=== PATIENT | female | born 1990 | race Two or more races ===

== ENCOUNTER 2024-12-19 14:16 | Emergency (ER) | payer MEDICAID, SELFPAY ==
[2024-12-19 14:17] VITALS: BMI 17.6
[2024-12-19 14:23] VITALS: BP 95/61; PULSE 80; RESP 18; TEMP 37.1; O2SAT 97
--- NOTE | 2024-12-19 14:38 | XR_ITS ---
Examination: Complete OB ultrasound, less than 14 weeks, transabdominal Date and time of exam: December 19, 2024, 1450 hrs. Indications: Onset vaginal bleeding beginning this morning. Technique: Obstetrical ultrasound images less than 14 weeks performed via transabdominal imaging Findings: Uterus 13.0 cm, irregular intrauterine gestational sac 3.2 cm corresponds to 8 weeks 3 days gestational age Possible molar lumbar No pole, no cardiac activity Right ovary 2.7 cm arterial flow. Left ovary 2.6 cm arterial flow Impression: Embryonic demise, possible molar
--- NOTE | 2024-12-19 14:40 | PD.EDVAGBL ---
ED OB Contraction Preg RMI/HPI General Chief complaint: Vaginal Bleeding Stated complaint: VAGINAL BLEEDING, PREG Time Seen by Provider: 12/19/24 14:19 Arrival date/time: 12/19/24 14:16 This is a 34-year-old female that comes into the emergency room with complaints of vaginal bleeding. Patient states that she found out she was October 26, 2024. Patient went to [place] and did not come back till early this morning. Patient was told in [place] that she did not have a heartbeat and that there was no baby but there was a placenta. Patient denies fever or chills. Patient states she just started having vaginal bleeding. Patient denies nausea, vomiting, diarrhea. Patient denies abdominal pain. Related Data Home Medications ?Medication ?Instructions ?Recorded ?Confirmed vitamin-ferrous fumarate 1 tab PO QDAY 05/25/23 12/27/24 28 mg iron-folic acid 800 mcg tablet ( Vitamins with Minerals) Previous Rx's ?Medication ?Instructions ?Recorded acetaminophen 300 mg-codeine 30 mg 1 tab PO Q8H PRN pain #14 tabs 05/27/23 tablet ibuprofen 800 mg tablet 800 mg PO Q8H PRN pain #30 tabs 05/27/23 Allergies Allergy/AdvReac Type Severity Reaction Status Date / Time No Known Allergies Allergy Verified 12/27/24 09:06 Review of Systems Review of Systems Systems Reviewed: All systems reviewed, normal except as documented Past Medical History Surgical History SURGICAL: Negative Section ED Exam Narrative Physical exam: VITAL SIGNS: Reviewed. GENERAL APPEARANCE: Alert and interactive, follows commands, no acute distress, HEAD AND FACE: Non-traumatic. ENT: PERRL, conjuctiva pink and clear, eyelid no trauma, Mucous membrane moist. NECK: Supple, nontender, no nuchal rigidity. CHEST: No tenderness, no crepitus, no paradoxical movement, no retractions. LUNGS: Clear, well ventilated, symmetric, no rales, no wheezing, no rhonchi, no stridor, good breath sounds bilaterally. HEART: Regular rate, regular rhythm, no murmur, no gallops. ABDOMEN: Soft, nondistended, no guarding, nontender NEUROLOGICAL: Gross motor function intact sensory function intact, Appropriate for age. MUSCULOSKELETAL: low back nontender, full range of motion. EXTREMITIES: No redness no swelling no skin breakdown on bilateral foot and leg. Distal neurovascular status intact bilateral foot SKIN: Color pink, dry, no rash, no lacerations, no abrasions, no contusions. Course Quality Measures none Orders Category Date Time Status US OB <= 14 weeks fetus Stat Exams 12/19/24 14:38 Completed Beta HCG,Quantitative Stat Lab 12/19/24 15:32 Completed CBC Stat Lab 12/19/24 15:32 Completed Comprehensive Metabolic Panel Stat Lab 12/19/24 15:32 Completed Type and Screen Stat Lab 12/19/24 15:32 Completed Urinalysis, C/S if Indicated Stat Lab 12/19/24 16:30 Completed Vital Signs Vital signs: Vital Signs Temperature 98.7 F 12/19/24 14:23 Pulse Rate 80 12/19/24 14:23 Respiratory Rate 18 12/19/24 14:23 Blood Pressure 95/61 12/19/24 14:23 Pulse Oximetry (%) 97 12/19/24 14:23 Oxygen Delivery Method Room Air 12/19/24 14:23 Vaginal Bleeding MDM Narrative MDM Narrative: Labs reviewed CBC unremarkable. BNP unremarkable. Beta hCG is 1346. Urine has some blood and RBCs but otherwise unremarkable. I spoke to patient at length she will [facility] It appears patient is having a miscarriage. Explained importance of follow-up with patient. I explained return if worsening. Patient verbalized understanding. I did speak to about patient. He states it it unlikely a molar but he will see patient in clinic this upcoming week. Ultrasound Shows: Uterus 13.0 cm, irregular intrauterine gestational sac 3.2 cm corresponds to 8 weeks 3 days gestational age Possible molar lumbar No pole, no cardiac activity Right ovary 2.7 cm arterial flow. Left ovary 2.6 cm arterial flow Impression: Embryonic demise, possible molar Christal dictation: Although this document has been carefully reviewed, there may still be some phonetic and other typographical errors. These errors are purely grammatical due to imperfections in the software program and should not be construed in any way to compromise the substance of the patient's medical care during this visit. Patient data External records reviewed:: [facility] previous records Clinical information provided by:: patient Social determinants that could affect healthcare access:: none Patient has the following chronic illnesses:: none How is presenting disease/condition affected by chronic disease/condition?: no chronic disease Evaluation data The following diagnostics were reviewed and interpreted by me:: lab results and radiology exam(s) Lab and/or radiology exams considered but not ordered:: none Interpretation Summary: see note Medications / Prescriptions Medications or Prescriptions considered but not ordered:: none Medication administrations:: none Consultations Consultation(s) initiated? (list below): No Diagnosis Vaginal Bleeding Differential Diagnosis: missed , threatened , dysfunctional uterine bleeding and other (molar ) Most likely diagnosis given after review of the tests above:: molar Admission Indicated Admission indicated?: not indicated Admission Request Was there a request for admission?: No Disposition Plan Disposition Plan: Discharge Discharge Attestation Discharge Attestation: The patient and all family members were given an opportunity to ask questions and understood the discharge instructions. Discharge instructions specifically effects, indications for sooner follow up or return to the emergency department, and the expected course of current diagnosis. Patient condition: Stable Discharge Plan Plan Patient Disposition: HOME (Self Care) Patient condition on transfer: Stable Prescriptions/Referrals Prescriptions/Med Rec: No Action vit-iron fum-folic ac [ Vitamin with Minerals] 28 mg iron- 800 mcg Tablet 1 tab PO QDAY acetaminophen-codeine 300-30 mg tablet 1 tab PO Q8H PRN (Reason: pain) Qty: 14 0RF ibuprofen 800 mg tablet 800 mg PO Q8H PRN (Reason: pain) Qty: 30 0RF Referrals: Bill Carson MD [Physician] - In 1 week Problem List Clinical Impression: Miscarriage at 8 to 28 weeks gestation, Vaginal bleeding Patient/Caregiver Discharge Instructions Discharge Activity: activity as tolerated Education Materials: Understanding Miscarriage ... Additional Instructions: Laly un lori con meneses medico de cabecera en las proximas 24-48 horas. Regrese a la eula de emergencias si hay evidencia de que los signos o sintomas empeoran. Print Language: Lithuanian Stand Alone Forms: [facility] Award Info., Patient Portal Info Letter PA/OB/GYN PHYSICIAN Supervising Physician PA/OB/GYN PHYSICIAN Supervising Physician: jose
[2024-12-19 15:41] LABS: Basophils # (Auto) 0.0 Thou/mm3 (0.0-0.2); Basophils % (Auto) 0 % (0-2.5); Eosinophils # (Auto) 0.1 Thou/mm3 (0.0-0.5); Eosinophils % (Auto) 2 % (0-10); Hematocrit 43.8 % (36.0-46.0); Hemoglobin 14.2 g/dL (12.0-16.0); Immature Granulocytes Auto 0.02 Thou/mm3 (0.00-0.00); Lymphocytes # (Auto) 2.0 Thou/mm3 (1.0-4.8); Lymphocytes % (Auto) 29 % (10-50); Mean Corpuscular HGB Conc 32.4 g/dl (31.0-37.0); Mean Corpuscular Hemoglobin 29.9 pg (25.0-35.0); Mean Corpuscular Volume 92 fL (80-100); Monocytes # (Auto) 0.4 Thou/mm3 (0.0-0.8); Monocytes % (Auto) 5 % (0-12); Neutrophils # (Auto) 4.5 Thou/mm3 (1.8-7.7); Neutrophils % (Auto) 64 % (37-80); Nucleated Red Blood Cell # 0.00 Thou/mm3 (0.00-0.00); Nucleated Red Blood Cell % 0 /100 WBC (0); Platelet Count 246 Thou/mm3 (140-440); RDW Standard Deviation 43.5 fL (36.4-46.3); Red Blood Count 4.75 Miln/mm3 (4.00-5.20); White Blood Count 7.1 Thou/mm3 (3.6-11.0)
[2024-12-19 16:38] LABS: Alanine Aminotransferase 14 U/L (10-49); Albumin, Serum 5.0 gm/dL (3.5-5.0); Albumin/Globulin Ratio 1.8 (1.2-2.2); Alkaline Phosphatase 53 U/L (46-116); Anion Gap 10 (7-16); Aspartate Amino Transferase 16 U/L (0-34); BUN/Creatinine Ratio 11 Ratio (12-20); Beta HCG,Quantitative 1346 mIU/mL (<5.0); Bilirubin,Total 0.5 mg/dL (0.3-1.2); Blood Urea Nitrogen 9 mg/dL (9-23); Calcium 9.5 mg/dL (8.3-10.6); Calcium (Corrected) 9.5 mg/dL (8.5-10.1); Carbon Dioxide 26.3 mMol/L (20.0-31.0); Chloride 106 mMol/L (98-107); Creatinine (Component) 0.8 mg/dL (0.6-1.3); Estimated Creatinine Clearance 72.4 mL/min (>60); Globulin 2.8 gm/dL (2.3-3.5); Glucose 77 mg/dL (74-106); Osmolality,Calculated 280 (275-295); Potassium 4.0 mMol/L (3.4-5.1); Sodium 142 mMol/L (136-145); Total Protein 7.8 gm/dL (5.7-8.2); eGFR > 60 See Note
[2024-12-19 16:59] LABS: Collection Type, Urine Voided
[2024-12-19 17:05] LABS: Bilirubin,Urine Negative (Negative); Blood,Urine 2+ (Negative); Color,Urine Yellow (Lt Yel-Yel); Culture Indicated,Urine Not Indicated; Glucose, Urine Negative (Negative); Ketones,Urine Trace (Negative); Leukocyte Esterase,Urine Negative (Negative); Nitrite,Urine Negative (Negative); PH,Urine 6.0 (5.0-7.0); Protein,Urine Negative (Neg - Trace); RBC,Urine 54 /hpf (0-3); Specific Gravity,Urine 1.029 (1.001-1.035); Squamous Epithelial Cell,Urine < 1 /hpf (0-5); Urobilinogen,Urine 2.0 mg/dL (0.0-1.0); WBC,Urine 1 /hpf (0-5)
[2024-12-19 17:11] LABS: Clarity,Urine Hazy (Clear/Hazy)
== END 2024-12-19 18:23 | disposition home or self-care (01) ==
PROVIDERS: Emergency Provider Nurse Practitioner Family; PCP Family Medicine
DX: O02.1 Missed abortion (principal); Z3A.08 8 weeks gestation of pregnancy
CPT/HCPCS: 36415; 76801; 80053; 81001; 84702; 85025; 86850; 86900; 86901; 99283

== ENCOUNTER 2024-12-27 08:37 | Outpatient (AMB) | payer MEDICAID, SELFPAY ==
[2024-12-27 09:05] VITALS: BP 96/61; PULSE 71; RESP 15; TEMP 36.8; O2SAT 98; BMI 17.4
--- NOTE | 2024-12-27 09:05 | AMB.GYNCLNOT ---
Vital Signs 12/27/24 09:05 Height 1.63 m Height Method Stated Weight 46.437 kg Weight Measurement Method Standing Scale BMI 17.4 BP 96/61 Blood Pressure Source Automatic Cuff Blood Pressure Location Left Upper Arm Position Sitting Respiration 15 Pulse 71 Pulse Source Monitor Temp 98.2 F Temp Source Oral Pulse Oximetry (%) 98 Oxygen Delivery Method Room Air Allergies/Home Meds Allergies & Medications Allergies No Known Allergies Allergy (Verified 01/06/25 10:04) Medication Reconciliation vitamin-ferrous fumarate 28 mg iron-folic acid 800 mcg tablet ( Vitamins with Minerals) 1 tab PO QDAY 05/25/23 [History Confirmed 12/27/24] acetaminophen 300 mg-codeine 30 mg tablet 1 tab PO Q8H PRN pain #14 tabs 05/27/23 [Rx Confirmed 12/27/24] ibuprofen 800 mg tablet 800 mg PO Q8H PRN pain #30 tabs 05/27/23 [Rx Confirmed 12/27/24] Intake Visit Data Collection New Patient or Established: Established Patient (seen at [facility] within 3 years) Reason for Visit:: EMERGENCY ROOM FOLLOW UP Seen by Clinical Staff ONLY (RN/MA): No Data Developer Required: Yes Data Developer's name/title: BOAZ HUERTA Do You Feel Safe at Home: Yes Authorities Contacted: N/A PCP or OBGYN visit in last 3 months: Yes Hx Now: No Are you currently on any form of Control: No Last menstrual period: 09/17/24 Pain Present Currently: No Pain Scale Used: Watson-[place]/Numerical Pain scale:: 0 Smoking Status Smoking Status: Never smoker 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 Menstrual regularity: irregular Flow: normal Monthly: No How many days does period last: 8 Age at menarche: 9 Currently sexually active: No If not currently sexually active, have you ever been sexually active: Yes 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 1. Little interest or pleasure in doing things: not at all 2. Feeling down, depressed, or hopeless: not at all Total score: 0 PHQ-9 3. Trouble falling or staying asleep, or sleeping too much: Not at all 4. Feeling tired or having little energy: Not at all 5. Poor appetite or overeating: Not at all 6. Feeling bad about yourself - or that you are a failure or have let yourself or your family down: Not at all 7. Trouble concentrating on things, such as reading the newspaper or watching television: Not at all 8. Moving or speaking so slowly that other people could have noticed? - Or the opposite - being so fidgety or restless that you have been moving around a lot more than usual: not at all 9. Thoughts that you would be better off or of hurting yourself in some way: Not at all Total score: 0 Source: Developed by Drs. Osmany Garcia, Charu Ashraf, Dajuan Zimmerman and colleagues, with an educational keesha from [employer]. Depression screen completed yes Social History Living Situation History Marital Status: Lives With: Children Housing: House Tobacco History Smoking Status: Never smoker Second Hand Smoke Exposure: No Alcohol History Alcohol Intake: Never Domestic Abuse History Do You Feel Safe at Home: Yes History of Present Illness HPI Narrative Clementina Scales, a 34-year-old woman, presents for follow-up of a complication identified in the emergency room. She was found to have a gestational sac corresponding to 8 weeks and 3 days, along with a possible molar . The patient reports that she is currently experiencing some vaginal bleeding. The ultrasound from the emergency room showed that the had stopped growing at 8 weeks. Additionally, instead of normal development, a molar was identified, which is described as an abnormal genetic problem during the fertilization process. Review of Systems Review of Systems Systems Reviewed: All systems reviewed, normal except as documented Exam General General Appearance: alert, in no apparent distress and healthy appearing Head Head exam: atraumatic Neck Neck exam: Present normal inspection and trachea midline Chest Chest inspection: Present normal inspection and symmetric chest wall rise External exam: Present normal external exam; Absent tenderness Neuro Neurological exam: Present oriented X3 Psych Psychiatric exam: Present normal affect and normal mood Office Procedures OB Clinic LOC & Office Proc's Nursing/Assessment Patient Status: Established Patient OB Clinic Nursing Assessment: Medication Reconciliation, Update PMH in EMR and Vital Signs OB Clinic Coordination of Care: Complex Care and Chronic Disease 1-5, Consent,records obtained, informed consent, Education Simp Pt/Fam, 1 Ins Authorization, Lab and Imaging orders, Results/Orders obtained and Staff clarify orders Established Patient Charge Established Patient Point Assignment: 120 Established Patient Point Charge: EP Level 4 (120-155) Assessment & Plan Diagnosis / Problem List (1) Molar : Status: Acute (2) Threatened : Status: Acute Plan Suspected Molar Assessment: Ultrasound findings reveal a that stopped growing at 8 weeks and 3 days, with features consistent with a molar . This is corroborated by an elevated serum hCG level of 1346. Molar is a result of a genetic abnormality during fertilization, leading to abnormal placental tissue formation instead of a viable fetus. The patient reports some current vaginal bleeding. Given the potential risk of persistent trophoblastic disease and subsequent malignancy, urgent intervention is necessary. 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
== END 2024-12-27 09:43 | disposition home or self-care (01) ==
LOC: HODSOBC 08:37
PROVIDERS: PCP Family Medicine; Referring Provider Family Medicine; Supervising Provider Obstetrics & Gynecology; Visit Provider Obstetrics & Gynecology
DX: O02.0 Blighted ovum and nonhydatidiform mole (principal)
CPT/HCPCS: 99214; G0463

== ENCOUNTER 2025-01-05 21:50 | Emergency (ER) | payer MEDICAID, SELFPAY | END 2025-01-05 22:04 | disposition left against medical advice (07) | LOC: SERX 21:59 | PROVIDERS: Emergency Provider Emergency Medicine | DX: Z53.21 Procedure and treatment not carried out due to patient leaving prior to being seen by health care provider (principal) | CPT/HCPCS: 99282 ==

== ENCOUNTER 2025-01-06 09:56 | Emergency (ER) | payer MEDICAID, SELFPAY ==
[2025-01-06 10:01] VITALS: BMI 18.2
[2025-01-06 10:27] VITALS: BP 103/67; PULSE 69; RESP 16; TEMP 37.1; O2SAT 99
--- NOTE | 2025-01-06 10:40 | XR_ITS ---
Examination: Complete OB ultrasound, less than 14 weeks, transabdominal Date and time of exam: January 06, 2025 1153 hours INDICATIONS: Pelvic pain and vaginal bleeding beginning 2.5 weeks ago, obstetrical sonogram December 19, 2024 intrauterine gestational sac possible molar , no pole, no cardiac activity Technique: Obstetrical ultrasound images less than 14 weeks performed via transabdominal imaging Findings: Uterus 10.3 cm Irregular intrauterine gestational sac 2.7 cm corresponding to 7 weeks 5 days gestational age Heterogeneous uterine tissue with increased vascularity which may represent a molar No pole No cardiac activity Right ovary 2.3 cm arterial flow Left ovary 3.1 cm arterial flow IMPRESSION: Embryonic demise
[2025-01-06 11:11] LABS: Collection Type, Urine Clean Catch; Squamous Epithelial Cell,Urine 0 /hpf (0-5); WBC,Urine 0 /hpf (0-5)
[2025-01-06 11:26] LABS: Bilirubin,Urine Negative (Negative); Blood,Urine Negative (Negative); Clarity,Urine Clear (Clear/Hazy); Color,Urine Colorless (Lt Yel-Yel); Culture Indicated,Urine Not Indicated; Glucose, Urine Negative (Negative); Ketones,Urine Negative (Negative); Leukocyte Esterase,Urine Negative (Negative); Nitrite,Urine Negative (Negative); PH,Urine 6.5 (5.0-7.0); Protein,Urine Negative (Neg - Trace); RBC,Urine < 1 /hpf (0-3); Specific Gravity,Urine 1.007 (1.001-1.035); Urobilinogen,Urine Negative mg/dL (0.0-1.0)
--- NOTE | 2025-01-06 11:29 | PD.EDRME ---
Rapid Medical Screening Exam RME Arrival date/time: 01/06/25 09:56 35-year-old female presents to the emergency department today stating she has had pelvic pain and back pain believes she has a molar . Chief Complaint: Vaginal Bleeding Time Seen by Provider: 01/06/25 10:13 Vital signs: Vital Signs Temperature 98.8 F 01/06/25 10:27 Pulse Rate 69 01/06/25 10:27 Respiratory Rate 16 01/06/25 10:27 Blood Pressure 103/67 01/06/25 10:27 Pulse Oximetry (%) 99 01/06/25 10:27 Oxygen Delivery Method Room Air 01/06/25 10:27
[2025-01-06 12:31] LABS: Basophils # (Auto) 0.0 Thou/mm3 (0.0-0.2); Basophils % (Auto) 0 % (0-2.5); Eosinophils # (Auto) 0.1 Thou/mm3 (0.0-0.5); Eosinophils % (Auto) 2 % (0-10); Hematocrit 42.2 % (36.0-46.0); Hemoglobin 13.9 g/dL (12.0-16.0); Immature Granulocytes Auto 0.01 Thou/mm3 (0.00-0.00); Lymphocytes # (Auto) 1.4 Thou/mm3 (1.0-4.8); Lymphocytes % (Auto) 30 % (10-50); Mean Corpuscular HGB Conc 32.9 g/dl (31.0-37.0); Mean Corpuscular Hemoglobin 30.2 pg (25.0-35.0); Mean Corpuscular Volume 92 fL (80-100); Monocytes # (Auto) 0.2 Thou/mm3 (0.0-0.8); Monocytes % (Auto) 5 % (0-12); Neutrophils # (Auto) 2.8 Thou/mm3 (1.8-7.7); Neutrophils % (Auto) 62 % (37-80); Nucleated Red Blood Cell # 0.00 Thou/mm3 (0.00-0.00); Nucleated Red Blood Cell % 0 /100 WBC (0); Platelet Count 184 Thou/mm3 (140-440); RDW Standard Deviation 43.8 fL (36.4-46.3); Red Blood Count 4.60 Miln/mm3 (4.00-5.20); White Blood Count 4.5 Thou/mm3 (3.6-11.0)
[2025-01-06 12:49] LABS: INR 1.0 (0.9-1.3); Partial Thromboplastin Time 28.2 Seconds (22.0-36.0); Prothrombin Time 11.4 Seconds (9.0-12.2)
[2025-01-06 12:56] LABS: Alanine Aminotransferase 15 U/L (10-49); Albumin, Serum 4.9 gm/dL (3.5-5.0); Albumin/Globulin Ratio 1.9 (1.2-2.2); Alkaline Phosphatase 47 U/L (46-116); Anion Gap 10 (7-16); Aspartate Amino Transferase 15 U/L (0-34); BUN/Creatinine Ratio 18 Ratio (12-20); Beta HCG,Quantitative 381 mIU/mL (<5.0); Bilirubin,Total 0.8 mg/dL (0.3-1.2); Blood Urea Nitrogen 11 mg/dL (9-23); Calcium 10.4 mg/dL (8.3-10.6); Calcium (Corrected) 10.4 mg/dL (8.5-10.1); Carbon Dioxide 26.4 mMol/L (20.0-31.0); Chloride 105 mMol/L (98-107); Creatinine (Component) 0.6 mg/dL (0.6-1.3); Estimated Creatinine Clearance 95.6 mL/min (>60); Globulin 2.6 gm/dL (2.3-3.5); Glucose 81 mg/dL (74-106); Osmolality,Calculated 279 (275-295); Potassium 4.0 mMol/L (3.4-5.1); Sodium 141 mMol/L (136-145); Total Protein 7.5 gm/dL (5.7-8.2); eGFR > 60 See Note
--- NOTE | 2025-01-06 13:52 | PD.EDVAGBL ---
ED OB Contraction Preg RMI/HPI General Chief complaint: Vaginal Bleeding Stated complaint: VAG BLEEDING MOLAR PREGNACY Time Seen by Provider: 01/06/25 10:13 Arrival date/time: 01/06/25 09:56 35-year-old female presents to the emergency department today stating she has had pelvic pain and back pain believes she has a molar . Limitations: no limitations RME / HPI RME / HPI Narrative: 01/06/25 09:56 35-year-old female presents to the emergency department today stating she has had pelvic pain and back pain believes she has a molar . Related Data Home Medications ?Medication ?Instructions ?Recorded ?Confirmed vitamin-ferrous fumarate 1 tab PO QDAY 05/25/23 12/27/24 28 mg iron-folic acid 800 mcg tablet ( Vitamins with Minerals) Previous Rx's ?Medication ?Instructions ?Recorded acetaminophen 300 mg-codeine 30 mg 1 tab PO Q8H PRN pain #14 tabs 05/27/23 tablet ibuprofen 800 mg tablet 800 mg PO Q8H PRN pain #30 tabs 05/27/23 hydrocodone 5 mg-acetaminophen 325 1 tab PO BID PRN pain #10 tabs 01/06/25 mg tablet Allergies Allergy/AdvReac Type Severity Reaction Status Date / Time No Known Allergies Allergy Verified 01/06/25 10:04 Review of Systems Review of Systems Systems Reviewed: All systems reviewed, normal except as documented Constitutional Constitutional: Reports system reviewed and no additional complaints, except as documented, Denies fever(s) and Denies headache(s) Eyes Eyes: Reports system reviewed and no additional complaints, except as documented and Denies blurry vision ENT Ears, Nose, Mouth, and Throat: Reports system reviewed and no additional complaints, except as documented, Denies headache(s), Denies nasal congestion and Denies nasal discharge Cardiovascular Cardiovascular: Reports system reviewed and no additional complaints, except as documented, Denies chest pain and Denies dyspnea Respiratory Respiratory: Reports system reviewed and no additional complaints, except as documented, Denies chest congestion, Denies cough and Denies dyspnea Gastrointestinal Gastrointestinal: Reports system reviewed and no additional complaints, except as documented and Denies abdominal pain Genitourinary Genitourinary: Reports system reviewed and no additional complaints, except as documented and Reports abnormal vaginal bleeding Integumentary/Breasts Skin/Breast: Reports system reviewed and no additional complaints, except as documented and Denies rash Neurologic Neurologic: Reports system reviewed and no additional complaints, except as documented, Reports as per HPI and Denies headache(s) Past Medical History Past Medical History NEUROLOGIC: Negative Neurological Disorders or Seizures CARDIAC: Negative Cardiac Disorders or Congestive Heart Failure RESPIRATORY: Negative Chronic Obstructive Pulmonary Disease (COPD) GASTROINTESTINAL: Negative Gastrointestinal Disorders or Hepatitis GENITOURINARY: Negative Genitourinary Disorders or Renal Disease MUSCULOSKELETAL: Negative Musculoskeletal Disorders ENDOCRINE: Negative Endocrine Disorders, Diabetes Mellitus Type 1 or Diabetes Mellitus Type 2 HEMATOLOGIC: Negative Blood Disorders OTHER HISTORY: Positive Hospitalization (CHILDBIRTH ONLY); Negative Autoimmune Disease, Down Syndrome, Developmental Delay, Shingles, Falls, Blood Transfusions, Blood Transfusion Reaction, Anesthesia Reactions, Organ Transplant, Chemotherapy, Radiation Therapy, Hyperbaric Therapy, MRSA, VRSA, Vancomycin-Resistant Enterococci, Human Immunodeficiency Virus (HIV), Chicken Pox, Measles, Mumps, Rubella (K[place] Measles), Pertussis, Clostridium Difficile or Cancer Family History FAMILY HISTORY: Negative Family Psychiatric Problems, Family Respiratory Disorders, Family Cardiac Disorders, Family Gastrointestinal Problems, Family Cancer, Family Surgery or Family Anesthesia Reaction Surgical History SURGICAL: Negative Section or Organ Transplant Social History SMOKING STATUS: Never smoker SECOND HAND EXPOSURE: No ED Exam General Limitations: Present no limitations General appearance: Present alert and in no apparent distress Head Head exam: Present atraumatic, normocephalic and normal inspection Eye Eye exam: Present normal appearance, PERRL and EOMI; Absent conjunctival injection ENT ENT exam: Present normal exam, normal oropharynx and mucous membranes moist Neck Neck exam: Present normal inspection, full ROM and trachea midline Chest Chest inspection: Present normal inspection and symmetric chest wall rise Respiratory Respiratory exam: Present normal lung sounds bilaterally; Absent respiratory distress Cardiovascular Cardiovascular exam: Present regular rate, normal rhythm and normal heart sounds Abdominal Exam Abdominal exam: Present soft and normal bowel sounds; Absent distention, tenderness, guarding, rebound or rigidity Extremities Exam Extremities exam: Present normal inspection and full ROM Back Exam Back exam: Present normal inspection and full ROM Neurological Exam Neurological exam: Present alert, oriented X3 and CN II-XII intact Psychiatric Psychiatric exam: Present normal affect and normal mood Skin Skin exam: Present warm, dry, intact and normal color Course Quality Measures none Orders Category Date Time Status US OB <= 14 weeks fetus Stat Exams 01/06/25 10:40 Completed Beta HCG,Quantitative Stat Lab 01/06/25 12:18 Completed CBC Stat Lab 01/06/25 12:18 Completed Comprehensive Metabolic Panel Stat Lab 01/06/25 12:18 Completed Partial Thromboplastin Time Stat Lab 01/06/25 12:18 Completed Prothrombin Time with INR Stat Lab 01/06/25 12:18 Completed Type and Screen Stat Lab 01/06/25 12:18 Completed UA, C/S IF [Urinalysis, C/S if Indicated] Stat Lab 01/06/25 11:01 Completed Vital Signs Vital signs: Vital Signs Temperature 98.8 F 01/06/25 10:27 Pulse Rate 69 01/06/25 10:27 Respiratory Rate 16 01/06/25 10:27 Blood Pressure 103/67 01/06/25 10:27 Pulse Oximetry (%) 99 01/06/25 10:27 Oxygen Delivery Method Room Air 01/06/25 10:27 O2 saturation 9 9% room air with normal limits Vaginal Bleeding MDM Narrative MDM Narrative: 35-year-old female presents to the emergency department today stating she has had pelvic pain and back pain believes she has a molar . I discussed the lab work, imaging, presentation of the patient with Dr. Ca he states he did not send the patient to the hospital today he reports the patient is waiting for an outpatient approval for D&C. At this time patient is hemodynamically stable patient reports no active bleeding reports a very mild pain As patient is hemodynamically stable well-appearing patient be discharged home at this time per Dr. GONZALEZ he states he can follow-up on an outpatient basis with the patient I explained to the patient if she has increased bleeding or pain to return immediately for further evaluation Patient data External records reviewed:: [facility] previous records Clinical information provided by:: patient Social determinants that could affect healthcare access:: none Patient has the following chronic illnesses:: None How is presenting disease/condition affected by chronic disease/condition?: no chronic disease Evaluation data The following diagnostics were reviewed and interpreted by me:: lab results and radiology exam(s) Lab and/or radiology exams considered but not ordered:: Labs radiology obtained Interpretation Summary: Reviewed by me Medications / Prescriptions Medications or Prescriptions considered but not ordered:: No med Medication administrations:: No meds Consultations Consultation(s) initiated? (list below): Yes Consultation #1 (Physician, Specialty, Details): Dr. Gonzalez Diagnosis Vaginal Bleeding Differential Diagnosis: missed , threatened , vaginal bleeding and other (Molar ) Most likely diagnosis given after review of the tests above:: Molar vaginal bleeding Admission Indicated Admission indicated?: not indicated Admission Request Was there a request for admission?: No Disposition Plan Disposition Plan: Discharge Discharge Attestation Discharge Attestation: The patient and all family members were given an opportunity to ask questions and understood the discharge instructions. Discharge instructions specifically effects, indications for sooner follow up or return to the emergency department, and the expected course of current diagnosis. Patient condition: Stable Discharge Plan Plan Patient Disposition: HOME (Self Care) Discharge Disposition comment: Stable Prescriptions/Referrals Prescriptions/Med Rec: New hydrocodone-acetaminophen 5-325 mg tablet 1 tab PO BID MDD 10 PRN (Reason: pain) Qty: 10 0RF No Action vit-iron fum-folic ac [ Vitamin with Minerals] 28 mg iron- 800 mcg Tablet 1 tab PO QDAY acetaminophen-codeine 300-30 mg tablet 1 tab PO Q8H PRN (Reason: pain) Qty: 14 0RF ibuprofen 800 mg tablet 800 mg PO Q8H PRN (Reason: pain) Qty: 30 0RF Referrals: No Primary/Family,Physician [Primary Care Provider] - 01/07/25 Problem List Clinical Impression: Embryonic demise Patient/Caregiver Discharge Instructions Education Materials: Understanding Miscarriage ... Additional Instructions: Please follow-up with the office of Dr. Gonzalez as discussed for worsening symptoms or concerns return immediately Print Language: Congolese Stand Alone Forms: [facility]ini Award Info., Patient Portal Info Letter PA/FORKL[employer] MATERIAL HANDLER Supervising Physician PA/[employer] Supervising Physician: dr reece
== END 2025-01-06 16:16 | disposition home or self-care (01) ==
PROVIDERS: Nurse Practitioner Primary Care; Emergency Provider Emergency Medicine
DX: O02.1 Missed abortion (principal)
CPT/HCPCS: 36415; 76801; 80053; 81001; 84702; 85025; 85610; 85730; 86850; 86900; 86901; 99283

== ENCOUNTER 2025-01-20 08:45 | Day surgery (SDC) | payer MEDICAID, SELFPAY ==
[2025-01-18 15:06] VITALS: BMI 17.9
--- NOTE | 2025-01-18 15:13 | SUR.PREOP ---
Interview over the phone, pt is coming to register and lab today, Instructed to keep NPO after Friday, pt to come in Thrusday at 0900.
[2025-01-18 17:46] LABS: Basophils # (Auto) 0.0 Thou/mm3 (0.0-0.2); Basophils % (Auto) 0 % (0-2.5); Eosinophils # (Auto) 0.1 Thou/mm3 (0.0-0.5); Eosinophils % (Auto) 2 % (0-10); Hematocrit 39.1 % (36.0-46.0); Hemoglobin 12.9 g/dL (12.0-16.0); Immature Granulocytes Auto 0.01 Thou/mm3 (0.00-0.00); Lymphocytes # (Auto) 1.5 Thou/mm3 (1.0-4.8); Lymphocytes % (Auto) 31 % (10-50); Mean Corpuscular HGB Conc 33.0 g/dl (31.0-37.0); Mean Corpuscular Hemoglobin 30.6 pg (25.0-35.0); Mean Corpuscular Volume 93 fL (80-100); Monocytes # (Auto) 0.3 Thou/mm3 (0.0-0.8); Monocytes % (Auto) 6 % (0-12); Neutrophils # (Auto) 2.9 Thou/mm3 (1.8-7.7); Neutrophils % (Auto) 61 % (37-80); Nucleated Red Blood Cell # 0.00 Thou/mm3 (0.00-0.00); Nucleated Red Blood Cell % 0 /100 WBC (0); Platelet Count 182 Thou/mm3 (140-440); RDW Standard Deviation 43.6 fL (36.4-46.3); Red Blood Count 4.22 Miln/mm3 (4.00-5.20); White Blood Count 4.8 Thou/mm3 (3.6-11.0)
[2025-01-18 17:57] LABS: HCG,Qualitative Serum Positive
[2025-01-18 18:05] LABS: Alanine Aminotransferase 11 U/L (10-49); Albumin, Serum 4.7 gm/dL (3.5-5.0); Albumin/Globulin Ratio 2.0 (1.2-2.2); Alkaline Phosphatase 43 U/L (46-116); Anion Gap 7 (7-16); Aspartate Amino Transferase 13 U/L (0-34); BUN/Creatinine Ratio 20 Ratio (12-20); Bilirubin,Total 0.6 mg/dL (0.3-1.2); Blood Urea Nitrogen 12 mg/dL (9-23); Calcium 9.8 mg/dL (8.3-10.6); Calcium (Corrected) 9.8 mg/dL (8.5-10.1); Carbon Dioxide 27.7 mMol/L (20.0-31.0); Chloride 106 mMol/L (98-107); Creatinine (Component) 0.6 mg/dL (0.6-1.3); Estimated Creatinine Clearance 93.7 mL/min (>60); Globulin 2.4 gm/dL (2.3-3.5); Glucose 86 mg/dL (74-106); Osmolality,Calculated 279 (275-295); Potassium 3.8 mMol/L (3.4-5.1); Sodium 141 mMol/L (136-145); Total Protein 7.1 gm/dL (5.7-8.2); eGFR > 60 See Note
[2025-01-20] VITALS (7 sets, daily range): BP systolic 96–105; BP diastolic 57–68; PULSE 60–80; RESP 14–18; TEMP 36.4–37.1; O2SAT 100; BMI 18.4
--- NOTE | 2025-01-20 10:49 | ESOP_ITS ---
Operative Note - SERVICE SUPPORT REPRESENTATIVE Procedure Date of procedure: 01/20/25 Procedure Performed: Suction dilatation and curettage Indication: Early with gestational sac corresponding to 8 weeks and 3 days, possible molar . Anesthesia type: General Procedure description: Informed consent was obtained and the patient was taken to the operating room. Identity was confirmed using two patient identifiers. The patient was positioned on the operating table, and general anesthesia was administered. She was then placed in the dorsal lithotomy position using Jose stirrups. The perineum was prepped and draped in the usual sterile fashion. A straight catheter was used to empty the bladder. A weighted speculum was placed in the posterior vaginal fornix, and a right-a ngle retractor was used to retract the anterior vaginal wall. An atraumatic grasper was used to gently grasp the anterior lip of the cervix, which was placed under traction. Cervical length from the external to internal os was assessed, and a uterine sound was used to measure uterine depth. The cervix was noted to be dilated to approximately 8 mm. A 8 mm suction cannula was introduced through the cervical os, and multiple gentle passes were performed until evacuation of all tissue and blood clots was complete. Endometrial grating was palpated, and the uterus was noted to have contracted appropriately. The suction cannula was removed, and a gentle curettage was performed using a standard curette. All instruments were then withdrawn. Uterine bleeding was minimal. The atraumatic grasper was removed from the cervix, which was visualized and found to be hemostatic. The speculum was removed from the vaginal canal. The patient was then cleaned, undraped, and taken out of the lithotomy position. General anesthesia was reversed, and the patient was transferred to the recovery room in stable and awake condition. The procedure was well tolerated. All instrument, sponge, and lap counts were correct ?2. Specimen: other Estimated blood loss (ml): 20 Complications: none Surgical staff Operation Date: 01/20/25 11:15 <No data on this case meets the specified criteria> Diagnosis Discharge Diagnosis (1) Molar : Status: Acute (2) Threatened : Status: Acute Problem List Completed Was Problem List Reviewed/Reconciled?: Yes
--- NOTE | 2025-01-20 11:23 | SUR.PHASEI ---
1123 patient arrived to recovery resting comfortably in [facility], on oxygen 2L via nasal cannula, breathing unlabored, vital signs stable, denies pain, dressing intact to vaginal area; peripad, no bleeding noted, report received from Dr. Jade and Lev LOO
--- NOTE | 2025-01-20 12:20 | SUR.PHASEII ---
1220 Patient meets discharge criteria from recovery, awake and alert, breathing unlabored, vital signs stable, denies pain, dressing intact; no bleeding noted, drinking water; tolerating well, denies nausea, assisted with dressing into her clothing by her , discharge instructions given to patient and patients with the assistance of the [facility] marine service operator Nancy to patient and her , signed discharge instructions. Patient given all her belongings prior to discharge, transported via wheelchair and left in a private vehicle.
== END 2025-01-20 12:20 | disposition home or self-care (01) ==
PROVIDERS: Referring Provider Obstetrics & Gynecology; Visit Provider Obstetrics & Gynecology
PROC: (CPT 58120; principal; 2025-01-20 11:00)
DX: O02.0 Blighted ovum and nonhydatidiform mole (principal)
CPT/HCPCS: 59820; 36415; 80053; 84703; 85025; 86850; 86900; 86901; A4217; A4649; J1100; J2250; J2405; J2704; J3010; J3490

== ENCOUNTER 2025-01-26 04:49 | Emergency (ER) | payer MEDICAID, SELFPAY ==
[2025-01-26] VITALS (7 sets, daily range): BP systolic 85–103; BP diastolic 52–66; PULSE 63–85; RESP 15–18; TEMP 36.5–36.9; O2SAT 100; BMI 18.4
--- NOTE | 2025-01-26 05:16 | XR_ITS ---
Examination: Transvaginal ultrasound of the pelvis, complete Technique: Transvaginal sonographic images pelvis performed using beckman scale imaging Exam date and time: January 26, 2025, 0526 hrs. Indications: Heavy vaginal bleeding beginning 2 days ago. Findings: Uterus 10.9 cm cystic area in the lower uterine segment 3.3 cm No uterine mass or intrauterine gestation Ovaries obscured by bowel gas Impression: No uterine mass or intrauterine gestation..
--- NOTE | 2025-01-26 05:17 | PD.EDRME ---
Rapid Medical Screening Exam [facility] Arrival date/time: 01/26/25 04:49 35F with recent D&C on 01/[address] Carson presents to ED with worsening vaginal bleeding. Initially bleeding was light, but since 01/24, patient has gone through about 6 pads. There are also clots. Patient denies any current pain. Chief Complaint: Vaginal Bleeding Vital signs: Vital Signs Temperature 98.4 F 01/26/25 05:01 Pulse Rate 78 01/26/25 05:01 Respiratory Rate 15 01/26/25 05:01 Blood Pressure 103/66 01/26/25 05:01 Pulse Oximetry (%) 100 01/26/25 05:01 Oxygen Delivery Method Room Air 01/26/25 05:01
[2025-01-26] MEDS: SODIUM CHLORIDE 0.9% 1000 ML 1,000 ML 999 ML IV (05:23)
--- NOTE | 2025-01-26 05:42 | PC.NURSE ---
PT ARRIVES TO ED WITH FOR VAGINAL BLEEDING APPROX 3 DAYS STARTED. PT HAS A D&C 01/20/2025. PT STATES THAT SHE HAD MINOR BLEEDING FOLLOWING PROCEDURE. ON 01/24/2025 PT STATES INCREASE BLEEDING WITH CLOTS THATS BRIGHT RED BLOOD. PT IS A . SHE STATES THAT SHES GONE THROUGH 5-6 PADS FOR THE LAST 3 DAYS. PT DENIES ANY PAIN, CRAMPING, N/V, CHEST PAIN, OR SOB
[2025-01-26 06:01] LABS: Basophils # (Auto) 0.0 Thou/mm3 (0.0-0.2); Basophils % (Auto) 0 % (0-2.5); Eosinophils # (Auto) 0.1 Thou/mm3 (0.0-0.5); Eosinophils % (Auto) 2 % (0-10); Hematocrit 38.0 % (36.0-46.0); Hemoglobin 12.5 g/dL (12.0-16.0); Immature Granulocytes Auto 0.01 Thou/mm3 (0.00-0.00); Lymphocytes # (Auto) 1.8 Thou/mm3 (1.0-4.8); Lymphocytes % (Auto) 30 % (10-50); Mean Corpuscular HGB Conc 32.9 g/dl (31.0-37.0); Mean Corpuscular Hemoglobin 30.3 pg (25.0-35.0); Mean Corpuscular Volume 92 fL (80-100); Monocytes # (Auto) 0.3 Thou/mm3 (0.0-0.8); Monocytes % (Auto) 6 % (0-12); Neutrophils # (Auto) 3.7 Thou/mm3 (1.8-7.7); Neutrophils % (Auto) 62 % (37-80); Nucleated Red Blood Cell # 0.00 Thou/mm3 (0.00-0.00); Nucleated Red Blood Cell % 0 /100 WBC (0); Platelet Count 180 Thou/mm3 (140-440); RDW Standard Deviation 42.4 fL (36.4-46.3); Red Blood Count 4.12 Miln/mm3 (4.00-5.20); White Blood Count 5.9 Thou/mm3 (3.6-11.0)
[2025-01-26 06:31] LABS: Alanine Aminotransferase 9 U/L (10-49); Albumin, Serum 4.3 gm/dL (3.5-5.0); Albumin/Globulin Ratio 2.0 (1.2-2.2); Alkaline Phosphatase 40 U/L (46-116); Anion Gap 8 (7-16); Aspartate Amino Transferase 11 U/L (0-34); BUN/Creatinine Ratio 15 Ratio (12-20); Bilirubin,Total 0.4 mg/dL (0.3-1.2); Blood Urea Nitrogen 9 mg/dL (9-23); Calcium 9.4 mg/dL (8.3-10.6); Calcium (Corrected) 9.4 mg/dL (8.5-10.1); Carbon Dioxide 24.5 mMol/L (20.0-31.0); Chloride 108 mMol/L (98-107); Creatinine (Component) 0.6 mg/dL (0.6-1.3); Estimated Creatinine Clearance 96.5 mL/min (>60); Globulin 2.2 gm/dL (2.3-3.5); Glucose 89 mg/dL (74-106); Osmolality,Calculated 277 (275-295); Potassium 3.8 mMol/L (3.4-5.1); Sodium 140 mMol/L (136-145); Total Protein 6.5 gm/dL (5.7-8.2); eGFR > 60 See Note
--- NOTE | 2025-01-26 06:55 | PRELIM_ITS ---
Pelvic ultrasound (transvaginal). January 26, 2025 at 0526 hours Clinical history: Bleeding status post. Technique: Real-time, grayscale, transabdominal and transvaginal pelvic ultrasound was performed using Duplex scanning including arterial inflow, venous outflow, color and spectral Doppler. No prior study is available for comparison. Findings: The uterus is normal in size measuring 10.9 x 4.7 x 4.9 cm. The uterus demonstrates heterogeneous echotexture with some vascularity. There is also anechoic area in the lower uterine segment/cervix area, measuring 3.3. x 1.3 x 1.6 cm. The right ovary is not visualized due to bowel in right adnexa region. The left ovary is not visualized due to bowel in left adnexa region. Both ovaries demonstrate color flow and spectral waveforms on Doppler evaluation. There is no adnexal mass. There is no free fluid on the submitted images. Impression: Anechoic area in the lower uterine segment/cervix area, measuring 3.3. x 1.3 x 1.6 cm, which can related to post-procedural collection of blood or fluid, retained products of conception also can not be excluded. Please correlate clinically. Report Electronically Signed By: Ifrah Tarango 01/26/2025 6:54:39 AM [EST]
--- NOTE | 2025-01-26 07:47 | EDNOTE_ITS ---
ED OB Contraction Preg RMI/HPI General Chief complaint: Vaginal Bleeding Stated complaint: VAGINAL BLEEDING,S/P D& C Time Seen by Provider: 01/26/25 06:07 Arrival date/time: 01/26/25 04:49 RME / HPI RME / HPI Narrative: 01/26/25 04:49 35F with recent D&C on 01/[address] Carson presents to ED with worsening vaginal bleeding. Initially bleeding was light, but since 01/24, patient has gone through about 6 pads. There are also clots. Patient denies any current pain. DR. MARTHA KERR ED EVALUATION 35 year old female who underwent a D&C by Dr. Carson on 01/20/2025 presents to the ED for evaluation of vaginal bleeding today. Reports she had been spotting lightly after D&C, only using panty liners. However, states beginning 2 days ago Friday she began bleeding more, now using regular pads and changing 2-3 times a day. States at 03:00 AM last night she had soaked through the pad and bleeding heavily since. Reportedly has changed her bad 5-6 times since onset. No associated pain or symptoms reported. Denies feeling light headed, dizzy, or short of breath. Related Data Previous Rx's ?Medication ?Instructions ?Recorded doxycycline monohydrate 100 mg 100 mg PO BID 7 days #1 4 caps 01/20/25 capsule ibuprofen 600 mg tablet 600 mg PO Q6H PRN fever or p ain 10 01/20/25 days #40 tabs Allergies Allergy/AdvReac Type Severity Reaction Status Date / Time No Known Allergies Allergy Verified 01/26/25 04:51 Review of Systems Review of Systems Systems Reviewed: All systems reviewed, normal except as documented Past Medical History Past Medical History GASTROINTESTINAL: Positive Hepatitis REPRODUCTIVE: Positive Previous Pregnancies OTHER HISTORY: Positive Hospitalization Family History FAMILY HISTORY: Negative Family Psychiatric Problems, Family Respiratory Disorders, Family Cardiac Disorders, Family Gastrointestinal Problems, Family Cancer, Family Surgery or Family Anesthesia Reaction Surgical History SURGICAL: Positive Section (x1) Social History SMOKING STATUS: Never smoker SECOND HAND EXPOSURE: No ED Exam Narrative Physical exam: See [facility] Course Quality Measures none Orders Category Date Time Status Insert IV NOW Care 01/26/25 05:16 Active Orthostatic Vitals NOW Care 01/26/25 06:28 Active US transvaginal Stat Exams 01/26/25 05:16 Completed CBC Stat Lab 01/26/25 05:38 Completed CMP [Comprehensive Metabolic Panel] Stat Lab 01/26/25 05:38 Completed Type and Screen Stat Lab 01/26/25 05:38 Completed Misoprostol [Cytotec] Med 01/26/25 07:41 Discontinued 200 mcg PO X1 ONE Sodium Chloride 0.9% 1000 ml [Ns] 1,000 ml Med 01/26/25 05:16 Discontinued IV 999 mls/hr Vital Signs Vital signs: Vital Signs Temperature 98.4 F 01/26/25 05:01 Pulse Rate 78 01/26/25 05:01 Respiratory Rate 15 01/26/25 05:01 Blood Pressure 103/66 01/26/25 05:01 Pulse Oximetry (%) 100 01/26/25 05:01 Oxygen Delivery Method Room Air 01/26/25 05:01 Pulse ox is 100% on room air which is adequate. Vaginal Bleeding MDM Narrative MDM Narrative: This section includes all my notes and documentations, including HPI, PE, and ED course. Jeff Jean MD ? HPI: 35 year old female who underwent D&C performed by Dr. Carson on 01/20/2025 presents to the ED today for evaluation of vaginal bleeding. Patient reports that after the procedure, she experienced light spotting, for which she used panty liners. However, starting two days ago Friday, she began bleeding more and she began using regular pads, changing them 2-3 times daily. At 03:00 AM today, she stated she soaked through the pad and has had heavy bleeding since. She has changed her pad 5-6 times since the onset of the heavier bleeding. Patient denies any associated pain, dizziness, lightheadedness, or shortness of breath. Denies fevers or chills. ? ROS: All negative except as documented in HPI. ? PE: GENERAL APPEARANCE:? alert and oriented x 4, well-developed, well-nourished, no acute distress VITALS: All vitals were reviewed and the pulse ox is % on room air, which is normal according to my interpretation. HEENT: Normocephalic, atraumatic; pupils equal, round, reactive to light; EOMI; mucous membranes pink, moist; oropharynx clear NECK: Supple LUNGS: CTABL; no wheezes, no rales, no rhonchi HEART: Regular rate, regular rhythm; normal S1, S2; no murmurs ABDOMEN: non distended; normal BS;? soft, no tenderness, no guarding, no rebound; no masses, no organomegaly, no hernia?? EXTREMITIES:? atraumatic; no edema NEUROLOGIC: awake; alert and oriented x4; cranial nerves II-XII grossly intact; no focal sensory or motor deficits PSYCHIATRIC:? appropriate mood and affect SKIN: warm, dry, normal color; no rashes ? I reviewed all diagnostic test results: My review of the transvaginal US report is: No mass or IUP Blood tests and urine test: ? I reviewed orthostatic vital signs: Laying HR 71, B/P 87/51. Standing HR 85, B/P 85/56. 0740: I spoke with VAISHNAVI Garcia on-call. Discussed patients PMHx, HPI, ED course, exam findings, labs, and radiology results. She recommends cytotec and reevaluation. 0836: Patient given Cytotec. 1048: On reassessment, patient reports the bleeding has improved. Patient remains clinically stable throughout the emergency department visit. We reviewed all the results, analysis, and treatment plans. Patient is amenable to discharge. Strict return precautions were outlined. Patient was discharged in stable condition. At this point, diagnoses include: Abnormal vaginal bleeding ? Treatment here included: IV fluids, Cytotec ? Significant improvement noted after medications. ? Recommended outpatient care. ? Based on my best medical judgment, made decision no further evaluation or treatment indicated at this time. Patient understands and agrees to the customized discharge instructions and printed, see below. ? Discharge instructions from Dr. Jean: Today you are seen in the emergency department for heavy vaginal bleeding. We performed many tests here in the ER and the results were very reassuring. Your vital signs have been stable and normal throughout your stay. I believe your vaginal bleeding has to do with the recent D&C that you had. You do not need another D&C. But we gave you a medicine called Cytotec, 200 mg. This will hopefully improve the bleeding. It is really important that you keep your appointment with Dr. Carson tomorrow. Be sure to let them know that you came to the ER and he will be able to view the results of the tests. Please return to the ER if you have any worsening or any further medical problems we will help you. Patient data External records reviewed:: [facility] previous records Clinical information provided by:: patient Social determinants that could affect healthcare access:: none Patient has the following chronic illnesses:: No chronic medical hx reported Underwent D&C performed by Dr. Carson on 01/20/2025 How is presenting disease/condition affected by chronic disease/condition?: no chronic disease Evaluation data The following diagnostics were reviewed and interpreted by me:: lab results and radiology exam(s) Lab and/or radiology exams considered but not ordered:: None Interpretation Summary: See [facility] Medications / Prescriptions Medications or Prescriptions considered but not ordered:: None Medication administrations:: Medication Administration History Discontinued Medications Sodium Chloride (Ns) 1,000 mls @ 999 mls/hr IV .Q1H1M ONE Stop: 01/26/25 06:16 Last Infusion: 01/26/25 06:25 Dose: Infused Documented By: Admin: 01/26/25 05:23 Dose: 999 mls/hr Documented By: KENNY Misoprostol (Misoprostol 200 Mcg Tablet) 200 mcg PO X1 ONE Stop: 01/26/25 07:42 Last Admin: 01/26/25 08:36 Dose: 200 mcg Documented By: BY See [facility] Consultations Consultation(s) initiated? (list below): Yes Consultation #1 (Physician, Specialty, Details): See [facility] Diagnosis Vaginal Bleeding Differential Diagnosis: dysfunctional uterine bleeding, menometrorrhagia and vaginal bleeding Most likely diagnosis given after review of the tests above:: Abnormal vaginal bleeding Admission Indicated Admission indicated?: not indicated Admission Request Was there a request for admission?: No Disposition Plan Disposition Plan: Discharge Discharge Attestation Discharge Attestation: The patient and all family members were given an opportunity to ask questions and understood the discharge instructions. Discharge instructions specifically effects, indications for sooner follow up or return to the emergency department, and the expected course of current diagnosis. Patient condition: Stable Discharge Plan Plan Patient Disposition: HOME (Self Care) Discharge Disposition comment: Stable for discharge home Patient condition on transfer: Stable Prescriptions/Referrals Prescriptions/Med Rec: No Action ibuprofen 600 mg tablet 600 mg PO Q6H MDD 4 PRN (Reason: fever or pain) 10 Days Qty: 40 0RF doxycycline monohydrate 100 mg capsule 100 mg PO BID 7 Days Qty: 14 0RF Referrals: Bill Carson MD [Primary Care Provider, SECURITIES DEALER] - In 1 week Problem List Clinical Impression: Abnormal vaginal bleeding Patient/Caregiver Discharge Instructions Discharge Activity: activity as tolerated Diet Instructions: No restrictions Education Materials: Understanding Uterine Bleeding, Discharge Instructions for ..., ED Dysfunctional Uterine Bleeding Additional Instructions: Today you are seen in the emergency department for heavy vaginal bleeding. We performed many tests here in the ER and the results were very reassuring. Your vital signs have been stable and normal throughout your stay. I believe your vaginal bleeding has to do with the recent D&C that you had. You do not need another D&C. But we gave you a medicine called Cytotec, 200 mg. This will hopefully improve the bleeding. It is really important that you keep your appointment with Dr. Carson tomorrow. Be sure to let them know that you came to the ER and he will be able to view the results of the tests. Please return to the ER if you have any worsening or any further medical problems we will help you. Print Language: Macanese Stand Alone Forms: [employer] Info., Patient Portal Info Letter
--- NOTE | 2025-01-26 10:49 | PC.NURSE ---
md at bedside and patient is ok to go,
--- NOTE | 2025-01-26 11:12 | PC.NURSE ---
discharge instructions given patient acknowleged
== END 2025-01-26 11:13 | disposition home or self-care (01) ==
PROVIDERS: Physician Assistant; Emergency Provider Emergency Medicine; PCP Obstetrics & Gynecology
DX: N93.9 Abnormal uterine and vaginal bleeding, unspecified (principal)
CPT/HCPCS: 36415; 76830; 80053; 85025; 86850; 86900; 86901; 96360; 99283; J7030; S0191; A9270

== ENCOUNTER 2025-01-27 15:16 | Outpatient (AMB) | payer MEDICAID, SELFPAY ==
--- NOTE | 2025-01-27 15:20 | GYNCLNT_ITS ---
Vital Signs 01/27/25 15:31 Height 1.6 m Height Method Stated Weight 48.534 kg Weight Measurement Method Standing Scale BMI 18.9 BP 90/56 L Blood Pressure Source Automatic Cuff Blood Pressure Location Left Upper Arm Position Sitting Respiration 16 Pulse 74 Pulse Source Monitor Temp 97.2 F Temp Source Oral Pulse Oximetry (%) 98 Oxygen Delivery Method Room Air Allergies/Home Meds Allergies & Medications Allergies No Known Allergies Allergy (Verified 02/03/25 15:25) Medication Reconciliation No Known Home Medications 02/03/25 [History Confirmed 02/03/25] Intake Visit Data Collection New Patient or Established: Established Patient (seen at [facility] within 3 years) Reason for Visit:: obc Seen by Clinical Staff ONLY (RN/MA): No Silvering Applicator Required: No Do You Feel Safe at Home: Yes Authorities Contacted: N/A PCP or OBGYN visit in last 3 months: Yes Date of Last PCP or OBGYN visit: 01/26/25 Hx Now: Yes Are you currently on any form of Control: No Pain Present Currently: No Pain Scale Used: Watson-Vernon/Numerical Pain scale:: 0 Smoking Status Smoking Status: Never smoker 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 Menstrual regularity: regular Flow: normal Monthly: Yes Age at menarche: 11 Menopausal: No Currently sexually active: No 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 1. Little interest or pleasure in doing things: not at all 2. Feeling down, depressed, or hopeless: not at all Total score: 0 PHQ-9 3. Trouble falling or staying asleep, or sleeping too much: Not at all 4. Feeling tired or having little energy: Not at all 5. Poor appetite or overeating: Not at all 6. Feeling bad about yourself - or that you are a failure or have let yourself or your family down: Not at all 7. Trouble concentrating on things, such as reading the newspaper or watching television: Not at all 8. Moving or speaking so slowly that other people could have noticed? - Or the opposite - being so fidgety or restless that you have been moving around a lot more than usual: not at all 9. Thoughts that you would be better off or of hurting yourself in some way: Not at all Total score: 0 If you checked off any problems, how difficult have these problems made it for you to do your work, take care of things at home, or get along with other people?: not difficult at all Source: Developed by Drs. Osmany Garcia, Charu Ashraf, Dajuan Zimmerman and colleagues, with an educational keesha from [employer]. Depression screen completed yes Social History Living Situation History Lives With: Children Housing: House Tobacco History Smoking Status: Never smoker Second Hand Smoke Exposure: No Alcohol History Alcohol Intake: Never Domestic Abuse History Do You Feel Safe at Home: Yes History of Present Illness HPI Narrative Lluvia Scales presents for a postoperative visit following a suction D&C performed on January 20, 2025, for a miscarriage. She recently visited the emergency room yesterday due to vaginal bleeding. The patient reports that her vaginal bleeding has improved since her ER visit yesterday but is still ongoing. She was prescribed medication in the ER, which she has been taking as directed, with today being the last day of the initial prescription. The bleeding is expected to taper off gradually. She is experiencing some weakness, as evidenced by the recommendation for rest and avoidance of heavy work. The patient mentioned passing some tissue after taking a pill, which was acknowledged as a possible occurrence following her procedure. She has an obstetric history of A2 L0 with a recent miscarriage managed with suction D&C on January 20, 2025, and a previous loss. She has been taking an antibiotic prescribed for 5 days to prevent infection after miscarriage, with today being the last dose. The patient is not currently . She lives with her partner who is present during the visit and expresses concern for her well-being. ROS: Positive for vaginal bleeding, which has improved since yesterday. - Pathology (01-20-2025): Products of conception, degenerated decidua and immature chorionic villi. Inflammation noted. - Ultrasound (01-26-2025): Small cyst in lower part of uterus (possibly a blood clot), no other abnormalities noted - Ultrasound (01-17-2025): No intrauterine sac - Ultrasound (01-20-2025): Intrauterine sac present, no heartbeat Exam General General Appearance: alert, in no apparent distress and healthy appearing Head Head exam: atraumatic Neck Neck exam: Present normal inspection and trachea midline Chest Chest inspection: Present normal inspection and symmetric chest wall rise External exam: Present normal external exam; Absent tenderness Neuro Neurological exam: Present oriented X3 Psych Psychiatric exam: Present normal affect and normal mood Assessment & Plan Diagnosis / Problem List (1) Postabortion hemorrhage: Status: Acute (2) Threatened : Status: Acute Plan Post-procedural complications of suction D&C: - Patient underwent suction D&C on 01/20/2025 for presumed miscarriage. - Pathology report confirms products of conception, degenerated decidua, and immature chorionic villi, ruling out molar . - Patient presented to ER yesterday with vaginal bleeding. - Ultrasound performed in ER showed a small cyst in the lower part of the uterus, possibly a blood clot. - Concern for potential infection due to retained products of conception, supported by inflammation noted in the pathology report. Plan: - Continue antibiotic therapy for 5 days (previously prescribed in ER). - Prescribe medication for bleeding control. - Advise rest and avoidance of heavy work. - Schedule follow-up phone appointment in 1 week to assess progress. - Repeat ultrasound in 1 month to evaluate uterine cyst/blood clot. Incomplete spontaneous : - Patient experienced a miscarriage, confirmed by pathology report showing pro ducts of conception, degenerated decidua, and immature chorionic villi. - The report indicates no evidence of molar , which was initially a concern. Plan: - Monitor for complete passage of tissue. - Educate patient on signs of infection and when to seek medical attention. - Advise on expected course of bleeding and recovery.
[2025-01-27 15:31] VITALS: BP 90/56; PULSE 74; RESP 16; TEMP 36.2; O2SAT 98; BMI 18.9
== END 2025-01-27 16:18 | disposition home or self-care (01) ==
PROVIDERS: Supervising Provider Obstetrics & Gynecology; Visit Provider Obstetrics & Gynecology
DX: O03.6 Delayed or excessive hemorrhage following complete or unspecified spontaneous abortion (principal)
CPT/HCPCS: 99213; G0463

== ENCOUNTER 2025-02-03 15:24 | Outpatient (AMB) | payer MEDICAID, SELFPAY ==
--- NOTE | 2025-02-03 15:25 | AMB.GYNCLNOT ---
Allergies/Home Meds Allergies & Medications Allergies No Known Allergies Allergy (Verified 02/03/25 15:25) Medication Reconciliation No Known Home Medications 02/03/25 [History Confirmed 02/03/25] Intake Visit Data Collection New Patient or Established: Established Patient (seen at [facility] within 3 years) Reason for Visit:: FOLLOW UP Consent obtained for Telemed Visit: Yes Seen by Clinical Staff ONLY (RN/MA): No Psychologist Military Personnel Required: Yes Psychologist Military Personnel's name/title: BOAZ HUERTA MA Do You Feel Safe at Home: Yes Authorities Contacted: N/A PCP or OBGYN visit in last 3 months: Yes Date of Last PCP or OBGYN visit: 01/26/25 Hx Now: No Are you currently on any form of Control: No Last menstrual period: 09/17/24 Pain Present Currently: No Pain Scale Used: Watson-Vernon/Numerical Pain scale:: 0 Smoking Status Smoking Status: Never smoker For Telemed visit only Telemed Video/Phone Visit: Yes Verbal consent obtained for Telemed visit?: Yes Verbal Consent witness name: RAISA COBB LEIGHA Telemed Video/Phone visit w/Clinical Staff: 11-20 min 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 Menstrual regularity: irregular Flow: normal Monthly: No How many days does period last: 7 Age at menarche: 9 Menopausal: No Currently sexually active: No If not currently sexually active, have you ever been sexually active: Yes POLYSOMNOGRAPHY TECHNOLOGIST: Past Medical History Past Medical History: No Hx Neurological Disorders, No Hx Cardiac Disorders, No Hx Cancer, No Hx Blood Disorders, No Hx Gastrointestinal Disorders, No Hx Renal Disease, No Hx Diabetes Mellitus Type 1 and No Hx Diabetes Mellitus Type 2 Questionnaires Covid-19 Vaccine Questionnaire Has patient been vacinated for Covid-19 Have you been vacinated for Covid-19: Yes PHQ-9 PHQ-2 Over the last 2 weeks, how often have you been bothered by any of the following problems? 1. Little interest or pleasure in doing things: not at all 2. Feeling down, depressed, or hopeless: not at all Total score: 0 PHQ-9 3. Trouble falling or staying asleep, or sleeping too much: Not at all 4. Feeling tired or having little energy: Not at all 5. Poor appetite or overeating: Not at all 6. Feeling bad about yourself - or that you are a failure or have let yourself or your family down: Not at all 7. Trouble concentrating on things, such as reading the newspaper or watching television: Not at all 8. Moving or speaking so slowly that other people could have noticed? - Or the opposite - being so fidgety or restless that you have been moving around a lot more than usual: not at all 9. Thoughts that you would be better off or of hurting yourself in some way: Not at all Total score: 0 If you checked off any problems, how difficult have these problems made it for you to do your work, take care of things at home, or get along with other people?: not difficult at all Source: Developed by Drs. Osmany Garcia, Charu Ashraf, Dajuan Zimmerman and colleagues, with an educational keesha from [employer]. Depression screen completed yes Social History Living Situation History Marital Status: Lives With: Children Housing: House Tobacco History Smoking Status: Never smoker Second Hand Smoke Exposure: No Alcohol History Alcohol Intake: Never Domestic Abuse History Do You Feel Safe at Home: Yes History of Present Illness HPI Narrative Lluvia Scales presents for follow-up of abnormal uterine bleeding. She reports ongoing bleeding with some improvement since her last visit. The patient states that her bleeding has been variable over the past week. On Friday, she felt the bleeding was not as severe as her previous hemorrhage. However, on Friday, she experienced slightly heavier bleeding, though not described as strong. The patient passed a notably large clot, which she found concerning due to its unusual appearance and size. She relates this to a previous study where a doctor mentioned seeing like a ball on imaging. Lluvia started taking prescribed medication on Friday afternoon, which her picked up from the pharmacy. She reports some confusion about the dosing schedule, having taken it at 8 o'clock and then stopping. She expresses uncertainty about whether to continue the medication. The patient notes that as of today (), her bleeding has improved somewhat compared to earlier in the week. However, she still describes ongoing bleeding, albeit at a reduced level. She is and lives with her . ROS: Genitourinary: Positive for vaginal bleeding, passing clots. Bleeding reported as heavier on Friday. Exam Narrative Physical exam: Televisit Office Procedures OB Clinic LOC & Office Proc's Nursing/Assessment Patient Status: Established Patient OB Clinic Nursing Assessment: Medication Reconciliation, Update PMH in EMR and Vital Signs OB Clinic Coordination of Care: Complex Care and Chronic Disease 1-5, Consent,records obtained, informed consent, Education Simp Pt/Fam, Results/Orders obtained and Staff clarify orders Established Patient Charge Established Patient Point Assignment: 90 Telehealth If patient is seen using Teleconference methods, complete New/Est section, but DO NOT aditi points only aditi the correct Telemed visit type Telemed Phone/Video with patient at home & Dr,PA,TUBE DEPATCHER: Yes Assessment & Plan Diagnosis / Problem List (1) Postabortion hemorrhage: Status: Acute Plan Abnormal Uterine Bleeding: - Ongoing vaginal bleeding following recent hemorrhage with variable intensity. - Passage of large, unusual clot described as different from previous ones. - Bleeding described as a little heavier on Friday but showing some improvement. - Patient started medication on Friday, delayed due to pharmacy availability issues. Plan: - Complete current course of prescribed medication as directed. - Follow up via phone on Friday to reassess bleeding status. - Ultrasound scheduled for next week to re-evaluate uterine condition. - Insurance approval process initiated for upcoming ultrasound.
== END 2025-02-03 16:21 | disposition home or self-care (01) ==
LOC: HODSOBC 15:24
PROVIDERS: Supervising Provider Obstetrics & Gynecology; Visit Provider Obstetrics & Gynecology
DX: O03.6 Delayed or excessive hemorrhage following complete or unspecified spontaneous abortion (principal)
CPT/HCPCS: 99212; G0463

== ENCOUNTER → 2025-02-08 | Outpatient (CLI) | payer MEDICAID, SELFPAY ==
--- NOTE | 2025-02-08 14:48 | XR_ITS ---
Examination: Pelvic ultrasound, transabdominal, complete Technique: Transabdominal ultrasound of the pelvis performed using grayscale imaging Date and time of exam: February 08, 2025 1516 hours INDICATIONS: Status post D&C January 20, 2025 with heavy vaginal bleeding FINDINGS: Comparison 01/26/2025 Uterus 7.7 cm endometrial stripe 0.5 cm Trace fluid in the endometrium Right ovary 3.5 cm arterial flow Left ovary 4.3 cm arterial flow small follicles IMPRESSION: Negative for retained products of conception
== END | disposition home or self-care (01) ==
LOC: CDIM 14:31
PROVIDERS: PCP Family Medicine; Referring Provider Obstetrics & Gynecology; Visit Provider Obstetrics & Gynecology
DX: N93.9 Abnormal uterine and vaginal bleeding, unspecified (principal); Z98.890 Other specified postprocedural states
CPT/HCPCS: 76856